=== PATIENT | female | born 1960 | race African-American/Black ===

== ENCOUNTER 2017-06-06 06:17 | Day surgery (SDC) | payer OTHER ==
[2017-06-04 13:02] VITALS: BMI 29.7
[~2017-06-06 06:17] MED LIST: BUPIVACAINE HCL/PF 0.5% (5MG/ML) 10 ML VIAL IJ ONE
[2017-06-06] MEDS ORDERED: PHENAZOPYRIDINE HCL 100 MG TABLET (FP) ONE (06:49)
[2017-06-06] MEDS ORDERED: IBUPROFEN 800 MG/8 ML IJ IVPB PRN (07:02)
--- NOTE | 2017-06-06 07:02 | HP ---
History & Physical Update - History History: No Change - Physical Physical: No Change - Assessment Assessment: No Change - Plan Plan: No Change
[2017-06-06] MEDS ORDERED: PHENAZOPYRIDINE HCL 100 MG TABLET (FP) PO STA (07:04)
[2017-06-06] MEDS ORDERED: DEXAMETHASONE SOD PHOSPHATE 4 MG/1 ML VIAL ONE (07:33)
[2017-06-06] MEDS ORDERED: PHENYLEPHRINE HCL 10 MG/1 ML SINGLE DOSE VIAL ONE (07:33)
[2017-06-06] MEDS ORDERED: ePHEDrine SULFATE 50 MG/1 ML AMPULE ONE (07:33)
[2017-06-06] MEDS ORDERED: LIDOCAINE HCL/PF 2% SDV 5ML VIAL ONE (07:33)
[2017-06-06] MEDS ORDERED: MIDAZOLAM HCL 2 MG/2 ML SINGLE DOSE VIAL ONE (07:34)
[2017-06-06] MEDS ORDERED: SUCCINYLCHOLINE CHLORIDE 200 MG/10 ML VIAL ONE (07:34)
[2017-06-06] MEDS ORDERED: PROPOFOL 20 ML ONE ×2 (07:34)
[2017-06-06] MEDS ORDERED: ROCURONIUM BROMIDE 50 MG/5 ML VIAL ONE ×2 (07:34→08:36)
[2017-06-06] MEDS ORDERED: BUPIVACAINE HCL/PF 0.5% (5MG/ML) 10 ML VIAL ONE (07:47)
[2017-06-06] MEDS ORDERED: ceFAZolin SODIUM 1 GM VIAL IVPB ONE (07:58)
[2017-06-06] MEDS ORDERED: fentaNYL CITRATE 250 MCG/5 ML VIAL ONE (08:15)
[2017-06-06] MEDS ORDERED: BUPIVACAINE HCL/PF 0.5% (5MG/ML) 10 ML VIAL IJ ONE ×2 (10:48)
[2017-06-06] MEDS ORDERED: ONDANSETRON 4 MG/2 ML VIAL IVPUSH PRN (11:31)
[2017-06-06] MEDS ORDERED: LACTATED RINGERS SOLUTION 1,000 ML IV SCH (11:45)
[2017-06-06 12:03] LABS: MCH 28.1 pg (25.7-33.7); MCHC 32.5 g/dl (32.0-36.0); MEAN CELL VOLUME 86.5 fl (80-96); MEAN PLT VOLUME 8.8 fl (7.5-11.1); PLATELET COUNT 197 K/MM3 (134-434); RDW 14.9 % (11.6-15.6); WHITE BLOOD COUNT 9.4 K/mm3 (4.0-10.0)
--- NOTE | 2017-06-06 13:06 | OP ---
Operative Note - Note: Operative Date: 06/06/17 Pre-Operative Diagnosis: Leiomyomatous Uterus. Submucosal myoma. Menorrhagia. Anemia Operation: Laparascopic Total Hysterectomy. Bilateral salpingectomy Findings: Uterus 16 cm 6 cm myoma Post-Operative Diagnosis: Same as Pre-op Surgeon: Jennifer Sharma [employer] General Supervisor: Sue Braswell Anesthesiologist/REVOLVING FIELD ASSEMBLER: Krish Mon Anesthesia: General Estimated Blood Loss (mls): 40 Operative Report Dictated: Yes
[2017-06-06] MEDS: DEXTROSE 5%-LACTATED RINGERS 1,000 ML IV SCH ×2 (14:00→17:55)
[2017-06-06] MEDS ORDERED: HYDROmorphone *PCA* 10MG/50ML DISP.SYRIN PCA ONE (14:10)
[2017-06-06] MEDS ORDERED: HYDROmorphone *PCA* 10MG/50ML DISP.SYRIN PCA SCH (15:15)
[2017-06-06] MEDS: CEFAZOLIN 2 GM/D5W 2 GM/50 ML ML IVPB SCH (17:47)
[2017-06-06 19:39] LABS: BASOPHIL 0.1 % (0-2.0); MCH 28.4 pg (25.7-33.7); MCHC 33.2 g/dl (32.0-36.0); MEAN CELL VOLUME 85.5 fl (80-96); MEAN PLT VOLUME 9.1 fl (7.5-11.1); NEUTROPHILS 88.4 % (42.8-82.8); PLATELET COUNT 196 K/MM3 (134-434); RDW 14.8 % (11.6-15.6); WHITE BLOOD COUNT 8.1 K/mm3 (4.0-10.0)
[2017-06-06 20:17] LABS: ANION GAP 8 (8-16); CALCIUM 8.2 mg/dL (8.5-10.1); CO2 29 mmol/L (21-32); GLUCOSE,RANDOM 147 mg/dL (74-106)
[2017-06-06] MEDS ORDERED: SIMETHICONE 80 MG TAB.CHEW (FP) PO PRN (21:56)
[2017-06-07] MEDS: CEFAZOLIN 2 GM/D5W 2 GM/50 ML ML IVPB SCH (00:03)
[2017-06-07] MEDS: DEXTROSE 5%-LACTATED RINGERS 1,000 ML IV SCH (06:08)
--- NOTE | 2017-06-07 09:02 | OP ---
DATE OF OPERATION: 06/06/2017 PREOPERATIVE DIAGNOSES: Leiomyomatous uterus, submucosal myoma, menorrhagia, and anemia. OPERATION: Robotic laparoscopic total hysterectomy and bilateral salpingectomy. SURGEON: Jennifer Sharma MD CONSULTING TECHNICAL DIRECTOR: Sue Braswell DO ANESTHESIA: General. ANESTHESIOLOGIST: Krish Mon MD FINDINGS: Uterus approximately 16 weeks in size with a large 5- to 6-cm submucosal myoma. DESCRIPTION OF PROCEDURE: Patient was taken to the operating room, placed in supine position, prepped and draped in the usual sterile fashion. A timeout was performed in accordance with hospital regulation. Bustos catheter was inserted into the bladder. Cervix then dilated to accommodate the large VCare device. Uterine manipulator was then inserted into the cavity. Attention was then drawn to the umbilicus where an 8-mm supraumbilical incision was made through the patient's previous keloid in the umbilicus. Veress needle was inserted into the cavity. Approximately 3-4 L of CO2 was insufflated in the cavity. Veress needle was then removed, and an 8-mm trocar was inserted. Laparoscope and camera were attached. Visualization revealed a 16-cm uterus and clips on the fallopian tubes and a cyst noted on the left ovary. Trocars were then inserted parallel to the supraumbilical incision. On the left, 2 incisions 8 mm in size under direct visualization, and the AirSeal cannula was inserted in the upper abdomen incision. Two incisions were placed on the left, and 8-mm trocars were then inserted parallel to the supraumbilical incision. The da Lindsay robot was side docked to the patient's arm after steep Trendelenburg had been given. The trocars were then inserted onto the da Lindsay robot. Instruments were then inserted. A vessel sealer was inserted on the left and EndoShears and vessel sealer were inserted on the right under direct visualization. After all instruments were in place, noted was an omental adhesion. Attention was then drawn to the console where control of the robot was done. The vessel sealer was then used to cut the omental adhesions. A large leiomyomatous uterus was then moved to the right side. Vessel sealer was then used to cut the utero-ovarian ligaments, the round ligaments were coagulated and cut, and the bladder was then entered and bladder was then dissected out of the operative field. The EndoShears were then used to enter the vagina. The same procedure was repeated on the right side down to the cardinal ligaments. Cardinal ligaments were clamped and cut. The EndoShears were then used to cut the vagina away from the uterus. After the cervix was cut away from the vagina, the large uterus was hard to remove vaginally; so, some myomectomy had to be performed prior to removal. A 5- to 6-cm large submucosal myoma was exteriorized to allow for the uterus to come out. Uterus was then exteriorized, and also, the 4-cm myoma was removed. Bilateral fallopian tubes were grasped and removed with their clips and handed off. Vessel sealer coagulation and cutting was done. Hemostasis was achieved. Ureters were identified throughout the whole procedure, noted to have peristalsis and noted to be moving. A 2-0 V-Loc suture was passed into the abdomen, and the closure of the vaginal cuff was done using 2-0 V-Loc suture in a continuous fashion. Suture was then cut, and needle was then removed. Hemostasis achieved. Bilateral peristalsis of both ureters was seen, and cuff was noted to be closed. All instruments were then removed. The da Lindsay was undocked from the patient and moved out of the operative field. The incisions were then closed using 4-0 Biosyn in subcuticular fashion. Wound was washed and dressed. The patient had tolerated the procedure well. Estimated blood loss was 40 mL. Shane [id number]
[2017-06-07 09:15] LABS: BASOPHIL 0.2 % (0-2.0); MCH 28.1 pg (25.7-33.7); MEAN CELL VOLUME 85.2 fl (80-96); MEAN PLT VOLUME 8.6 fl (7.5-11.1); NEUTROPHILS 79.6 % (42.8-82.8); PLATELET COUNT 147 K/MM3 (134-434); WHITE BLOOD COUNT 6.1 K/mm3 (4.0-10.0)
[2017-06-07 09:41] LABS: ANION GAP 7 (8-16); CALCIUM 7.5 mg/dL (8.5-10.1); CO2 30 mmol/L (21-32); CREATININE 0.8 mg/dL (0.55-1.02); GLUCOSE,RANDOM 117 mg/dL (74-106)
--- NOTE | 2017-06-07 09:53 | PN ---
Progress Note (SOAP) - Subjective Chief Complaint: Pt doing well + flatus no BM tolerating clear - Current Medications Current Medications: Active Medications Amlodipine Besylate (Norvasc -) 2.5 mg PO DAILY [facility] Enoxaparin Sodium (Lovenox -) 40 mg SQ DAILY [facility] Fentanyl (Sublimaze Injection -) 50 mcg IVPUSH [id number] PRN PRN Reason: PAIN Hydromorphone HCl (Dilaudid Lens Marker -) 0 mg BRAID PATTERN SETTER BRAID PATTERN SETTER JOAN PRN Reason: Protocol Stop: 06/09/17 15:14 Last Admin: 06/06/17 17:57 Dose: Not Given Dextrose/Lactated Ringer's (D5-Lr -) 1,000 mls @ 125 mls/hr IV ASDIR [facility] Last Admin: 06/07/17 06:08 Dose: 125 mls/hr Lactated Ringer's (Lactated Ringers Solution) 1,000 mls @ 125 mls/hr IV ASDIR [facility] Last Admin: 06/06/17 17:56 Dose: Not Given Ibuprofen (Caldolor Injection -) 800 mg IVPB Q6H PRN PRN Reason: FEVER Losartan Potassium (Cozaar -) 25 mg PO DAILY [facility] Ondansetron HCl (Zofran Injection) 4 mg IVPUSH Q6H PRN PRN Reason: NAUSEA AND/OR VOMITING Simethicone (Mylicon -) 80 mg PO Q4H PRN PRN Reason: GAS - Objective Vital Signs: Vital Signs Temperature 99.1 F 06/07/17 06:11 Pulse Rate 80 06/07/17 06:11 Respiratory Rate 20 06/07/17 06:11 Blood Pressure 116/68 06/07/17 06:11 O2 Sat by Pulse Oximetry (%) 99 06/06/17 21:00 Constitutional: Yes: Well Nourished, No Distress Respiratory: Yes: WNL Gastrointestinal: Yes: WNL, Soft Breast(s): Yes: WNL Musculoskeletal: Yes: WNL Extremities: Yes: WNL Edema: No Wound/Incision: Yes: Clean/Dry, Dressing Dry and Intact Neurological: Yes: WNL, Alert, Oriented Labs Lab Results: CBC, BMP 06/07/17 08:00 06/07/17 08:00 Problem List - Problems (1) S/P laparoscopic hysterectomy Code(s): Z90.710 - ACQUIRED ABSENCE OF BOTH CERVIX AND UTERUS Assessment/Plan POD 1 stable HCT Plan DC home RTO 2 week
[2017-06-07] MEDS ORDERED: ENOXAPARIN NA (PORCINE) 40 MG/0.4 ML DISP.SYRIN SQ SCH (10:00)
[2017-06-07] MEDS ORDERED: LOSARTAN POTASSIUM 25 MG TABLET PO SCH (10:00)
[2017-06-07] MEDS ORDERED: amLODIPine BESYLATE 2.5 MG TABLET (FP) PO SCH (10:00)
[2017-06-07] MEDS ORDERED: ACETAMINOPHEN 325 MG TABLET (FP) PO PRN ×2 (10:07→10:08)
[2017-06-07] MEDS ORDERED: oxyCODONE HCL 5 MG TABLET PO PRN ×2 (10:07→10:08)
[2017-06-07 14:19] VITALS: BP 119/69; PULSE 92; TEMP 99.5
--- NOTE | 2017-06-10 14:14 | PATH ---
Surgical Pathology Report Patient Name: JENNIFER JANE [facility]. Rec. #: [id number] /Age/Gender: 1960 (Age: 56) / F Account: [id number] Location: AMBULATORY SURG Taken: 06/06/2017 Received: 06/06/2017 Reported: 06/10/2017 Physicians: Jennifer Sharma M.D. Specimen(s) Received A: UTERUS AND CERVIX B: RIGHT FALLOPIAN TUBE C: LEFT FALLOPIAN TUBE Clinical History Leiomyoma of uterus Final Diagnosis A. UTERUS AND CERVIX, HYSTERECTOMY: UTERUS AND CERVIX, 668 GRAMS, WITH LEIOMYOMATA, ADENOMYOSIS, INACTIVE TO SECRETORY ENDOMETRIUM, AND CERVIX WITH CHRONIC INFLAMMATION. B. RIGHT FALLOPIAN TUBE, SALPINGECTOMY: UNREMARKABLE FALLOPIAN TUBE. C. LEFT FALLOPIAN TUBE, SALPINGECTOMY: UNREMARKABLE FALLOPIAN TUBE. Electronically Signed Cyrus Baxter M.D. Gross Description A. Received in formalin labeled "uterus and cervix," is a 668 g uterus with an attached cervix and no attached adnexa. The specimen measures 18 cm from superior to inferior, 12 cm from left to right and 8 cm from anterior to posterior. The specimen displays a large defect with a focally disrupted fibroid at the fundus. The remaining serosa is pink-reyes with focal subserosal nodules. The cervix measures 4 cm in length and averages 3 cm in diameter. There is no definite ectocervix identified. The endocervix is unremarkable. The endometrial cavity measures 8 cm in length and averages 3 cm from cornu to cornu. There is endometrium focally surfacing the 8 cm in greatest dimension bulging, disrupted fundic fibroid. The endometrium is reyes-brown and averages 0.1 cm in thickness. The myometrium displays multiple smaller intramural nodules. The cut surface of the subserosal and intramural fibroids is reyes, firm to rubbery and displays a whorled architecture. No areas of hemorrhage or necrosis are identified. The myometrium is reyes-pink and measures up to 4 cm in thickness. There is a 45 g, 5.5 x 4.5 x 3.6 cm separately received fibroid within the same container. Sectioning reveals reyes, firm to rubbery parenchyma with whorled architecture. No areas of hemorrhage or necrosis are identified. Dock Loader sections are submitted in 15 cassettes as follows: 1-anterior cervix; 2-posterior cervix; 8-3-uhpzcawd endomyometrium; 1-7-mqxufnvxy endomyometrium; 7-8-large fundic fibroid with endometrium; 3-71-ofzehxlnmb sections of large fundic fibroid; 16-77-suwxbzvjov intramural nodules; 13-subserosal nodules; 48-61-yoaixjcbbm received fibroid. B. Received in formalin labeled "right fallopian tube," are 2 portions of fallopian tube measuring 3.0 and 2.7 cm in length. The longer portion is fimbriated. The shorter portion contains a portion of hardware within the lumen. The outer surfaces are reyes-woodruff and smooth. Sectioning of the longer portion reveals an unremarkable lumen. Dock Loader sections are submitted in 2 cassettes as follows: 1-fimbria; 2-cross sections of fallopian tube. C. Received in formalin labeled "left fallopian tube," is a 4 cm in length fimbriated portion of fallopian tube. The outer surface is reyes burger and smooth. Sectioning reveals a focal portion of hardware within the lumen. The remaining lumen is unremarkable. Dock Loader sections are submitted in 2 cassettes as follows: 1-fimbria; 2-cross sections of fallopian tube. 06/07/2017 saudi06/07/2017
== END 2017-06-07 13:40 | disposition home or self-care (01) ==
LOC: JASUSAT 06:17 → EDSTATUS 08:00 → J6S 13:30 → JASUSAT 06-07 13:40
PROVIDERS: ATTEND Obstetrics & Gynecology
PROC: 8E0W8CZ Robotic Assisted Procedure of Trunk Region, Via Natural or Artificial Opening Endoscopic (ICD-10-PCS; 2017-06-06)
PROC: 0UT9FZZ Resection of Uterus, Via Natural or Artificial Opening With Percutaneous Endoscopic Assistance (ICD-10-PCS; principal; 2017-06-06 07:30)
PROC: 0UT7FZZ Resection of Bilateral Fallopian Tubes, Via Natural or Artificial Opening With Percutaneous Endoscopic Assistance (ICD-10-PCS; 2017-06-06 07:30)
DX: N92.0 Excessive and frequent menstruation with regular cycle (principal); D25.0 Submucous leiomyoma of uterus; D64.9 Anemia, unspecified
CPT/HCPCS: 58552; S2900; 36415; 80048; 85025; 85027; 88302-TC; 88307-TC